=== PATIENT | male | born 1955 | race African-American/Black ===

== ENCOUNTER 2018-05-13 07:44 | Emergency (ER) | payer OTHER ==
[2018-05-13 08:42] LABS: #Basophils 0.1 thou/uL (0.0-0.2); #Eosinphils 0.1 thou/uL (0.0-0.7); #Lymphocytes 1.3 thou/uL (1.20-3.40); #Monocytes 1.2 thou/uL (0.11-0.59); #Neutrophils 8.1 thou/uL (1.40-6.50); %Basophils 0.8 % (0.0-1.0); %Eosinophils 0.9 % (0.0-10.0); %Lymphocytes 12.2 % (21.0-51.0); %Monocytes 11.2 % (0.0-10.0); %Neutrophils 74.9 % (42.0-75.0); Hemoglobin 14.7 g/dL (14.0-18.0); Mean Corpuscular HGB CONC 33.8 g/dL (32.0-36.0); Mean Corpuscular Volume 91.7 fL (78.0-98.0); Mean Platelet Volume 6.6 fL (7.4-10.4); Platelet Count 274 thou/uL (130-400); Red Blood Cell (RBC) Count 4.75 mill/uL (4.70-6.10); White Blood Cell (WBC) Count 10.9 thou/uL (4.8-10.8)
[2018-05-13 08:57] LABS: Bilirubin Negative (Negative); Blood, Urine Moderate (Negative); Clarity Clear (Clear); Glucose, Urine (Dipstick) Negative (Negative); Leukocyte Negative (Negative); Nitrite Negative (Negative); Protein, Urine (Dipstick) 30 mg/dL (Neg-Trace); Specific Gravity, Urine 1.025 (1.005-1.030); Urobilinogen 0.2 mg/dL (0.2-1.0); pH, Urine 5.5 (5.0-9.0)
[2018-05-13 08:58] LABS: CKMB 1.4 ng/mL (0-6.6)
[2018-05-13 08:59] LABS: ALT (SGPT) 25 U/L (8-55); AST (SGOT) 23 U/L (5-34); Albumin 4.2 g/dL (3.4-4.8); Alkaline Phosphatase 74 U/L (40-150); Anion Gap 15 mmol/L (10-20); BUN (Urea Nitrogen) 12 mg/dL (8.4-25.7); Bilirubin, Total 0.8 mg/dL (0.2-1.2); Calc. Creatinine Clearance 0 mL/min (70-130); Calcium 9.1 mg/dL (7.8-10.44); Carbon Dioxide 23 mmol/L (23-31); Chloride 104 mmol/L (98-107); Estimated GFR-MDRD 67; Globulin 3.1 g/dL (2.4-3.5); Glucose 120 mg/dL (80-115); Lipase 6 U/L (8-78); Potassium 3.8 mmol/L (3.5-5.1); Protein, Total 7.3 g/dL (5.8-8.1); Sodium 138 mmol/L (136-145)
[2018-05-13 09:00] LABS: Bacteria/HPF None Seen HPF (None Seen); Squamous Epithelial 0-3 HPF (0-3); WBC/HPF 0-3 HPF (0-3)
--- NOTE | 2018-05-13 09:00 | RAD ---
TWO VIEWS CHEST: Date: 05-13-18 Provided Clinical History: Nausea, epigastric pain. FINDINGS: Comparison is made with study dated 07-26-14. Cardiac and mediastinal silhouette is within normal limits. Lungs appear clear. There is no pleural f luid or pneumothorax apparent. IMPRESSION: No evidence for acute cardiopulmonary process. POS: [facility]
[2018-05-13] MEDS ORDERED: Sodium Chloride 0.9% 1,000 ML ONE (09:32)
[2018-05-13] MEDS ORDERED: Ketorolac Tromethamine 30 MG/ML VIAL ONE (09:32)
[2018-05-13 11:26] LABS: Troponin I 0.022 ng/mL (< 0.028)
== END 2018-05-13 11:53 | disposition home or self-care (01) ==
LOC: NAV ERS 07:44
DX: R11.0 Nausea (principal); R10.13 Epigastric pain; M10.9 Gout, unspecified; I10 Essential (primary) hypertension
CPT/HCPCS: 36415; 71046; 80053; 81003; 81015; 82553; 83690; 84484; 85025; 86140; 93005; 96361; 96374; J1885; J7050

== ENCOUNTER 2018-06-18 11:34 | Outpatient (CLI) | payer OTHER ==
--- NOTE | 2018-06-18 13:34 | RAD ---
RIGHT ELBOW 4 VIEWS: HISTORY: Elbow pain. COMPARISON: None. FINDINGS: Hypertrophic osteophyte formation with degenerative loss of joint space of the radiocapitellar and ul ben trochlear joints. Large hypertrophic osteophytes. No significant joint effusion. No acute frac ture or malalignment. 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 POS: [facility]
== END 2018-06-18 11:35 | disposition home or self-care (01) ==
LOC: NAV RAD 11:34
PROVIDERS: ATTEND Nurse Practitioner Family
DX: M25.521 Pain in right elbow (principal); M19.021 Primary osteoarthritis, right elbow

== ENCOUNTER 2023-10-31 09:28 | Emergency (ER) | payer OTHER ==
[2023-10-31 10:13] LABS: Anion Gap 14 mmol/L (10-20); BUN (Urea Nitrogen) 43 mg/dL (8.4-25.7); Calc. Creatinine Clearance 0 mL/min (70-130); Calcium 8.1 mg/dL (7.8-10.44); Carbon Dioxide 17 mmol/L (23-31); Chloride 114 mmol/L (98-107); Estimated GFR 27; Glucose 79 mg/dL (80-115); Potassium 5.9 mmol/L (3.5-5.1); Sodium 139 mmol/L (136-145)
[2023-10-31] MEDS ORDERED: Albuterol 2.5 MG (3 mL) NEB ONE (10:59)
[2023-10-31] MEDS ORDERED: Sodium Polystyrene Sulfonate 15 GM (60 mL) BOT ONE (10:59)
[2023-10-31] MEDS ORDERED: Sodium Chloride 0.9% 500 ML ONE (10:59)
[2023-10-31] MEDS ORDERED: Calcium Chloride 1 GM/10 ML Abboject SYRINGE IVP SCH (11:00)
[2023-10-31] MEDS ORDERED: Albuterol 2.5 MG (3 mL) NEB NEB SCH (11:15)
[2023-10-31] MEDS ORDERED: Sodium Polystyrene Sulfonate 15 GM (60 mL) BOT PO SCH (11:15)
== END 2023-10-31 12:52 | disposition short-term general hospital (02) ==
LOC: NAV ERS 09:28
DX: E87.5 Hyperkalemia (principal); I12.0 Hypertensive chronic kidney disease with stage 5 chronic kidney disease or end stage renal disease; N18.6 End stage renal disease; Z99.2 Dependence on renal dialysis; E86.0 Dehydration
CPT/HCPCS: 80048; 93005; 94640; J7030; J7611

== ENCOUNTER 2024-07-21 15:31 | Emergency (ER) | payer OTHER ==
[2024-07-21 16:45] LABS: ALT (SGPT) Less than 7 U/L (Less than 45); AST (SGOT) 17 U/L (11-34); Albumin 2.1 g/dL (3.1-4.5); Alkaline Phosphatase 63 U/L (40-110); Anion Gap 15 mmol/L (10-20); BUN (Urea Nitrogen) 66 mg/dL (8.4-25.7); Bilirubin, Total 0.2 mg/dL (0.3-1.2); Calc. Creatinine Clearance 0 mL/min (70-130); Calcium 8.4 mg/dL (7.8-10.44); Carbon Dioxide 18 mmol/L (23-31); Chloride 115 mmol/L (98-107); Estimated GFR 20; Globulin 3.3 g/dL (2.4-3.5); Glucose 91 mg/dL (80-115); Potassium 4.7 mmol/L (3.5-5.1); Protein, Total 5.4 g/dL (5.8-8.1); Sodium 143 mmol/L (136-145)
[2024-07-21] MEDS ORDERED: Spironolactone 25 MG TAB PO SCH (16:45)
== END 2024-07-21 18:00 ==
LOC: EEVIPCON 15:31 → NAV ERS 15:31
DX: I12.0 Hypertensive chronic kidney disease with stage 5 chronic kidney disease or end stage renal disease (principal); N18.6 End stage renal disease; K76.9 Liver disease, unspecified; Z87.891 Personal history of nicotine dependence; Z79.899 Other long term (current) drug therapy; Z99.2 Dependence on renal dialysis
CPT/HCPCS: 71045; 80053